=== PATIENT | female | born 1965 | race Caucasian/White ===

== ENCOUNTER 2019-02-21 06:13 | Emergency (ER) | payer BC ==
[~2019-02-21] VITALS: Ht 167.6 cm; Wt 72.6 kg
--- NOTE | 2019-02-21 06:29 | NUR ---
Patient ambulated with stable gait. Speech clear, speaks in complete sentences. No neuro deficits noted. A/Ox4. Patient came for c/o bilat flank pain x2 hrs along with traces of blood in the urine. Respiratory even and unlabored, no cough no sob. No cardiovascular distress noted, all pulses palpable. Denies any n/v/d, no other symptoms other than the hematuria reported. Patient in bed at lowest position, sr upx2, call light within reach. Fall precautions implemented per protocol. at bedside accompanying patient.
--- NOTE | 2019-02-21 06:31 | NUR ---
ERMD at bedside for eval.
--- NOTE | 2019-02-21 06:40 | NUR ---
Called Radiology to page US for patient scan.
[2019-02-21] MEDS ORDERED: ONDANSETRON 4 MG/2 ML VIAL ONE (06:42)
[2019-02-21] MEDS ORDERED: KETOROLAC TROMETHAMINE 30 MG INJ ONE (06:42)
[2019-02-21] MEDS ORDERED: ONDANSETRON 4 MG/2 ML VIAL IV ONE (06:45)
[2019-02-21] MEDS ORDERED: KETOROLAC TROMETHAMINE 15 MG INJ IVP ONE (06:45)
[2019-02-21] MEDS ORDERED: IV NORMAL SALINE 1000 ML BAG IV ONE (06:45)
[2019-02-21] MEDS ORDERED: RIZA10TA27 PO (06:50)
[2019-02-21] MEDS ORDERED: ESOM20CA PO (06:51)
[2019-02-21 06:53] LABS: BASOPHILS % (AUTO) 0.3 % (0.0-2.0); EOSINOPHILS % (AUTO) 0.4 % (0.0-7.0); HEMATOCRIT 39.5 % (31.2-41.9); HEMOGLOBIN 13.2 g/dL (10.9-14.3); LYMPHOCYTES # (AUTO) 1.7 K/uL (20.0-40.0); LYMPHOCYTES % (AUTO) 15.8 % (20.5-51.5); MEAN CORPUSCULAR HGB CONC 33 g/dL (32.3-35.6); MEAN CORPUSCULAR VOLUME 83.7 fL (75.5-95.3); MONOCYTES # (AUTO) 0.6 K/uL (2.0-10.0); MONOCYTES % (AUTO) 5.4 % (0.0-11.0); NEUTROPHILS # (AUTO) 8.4 K/uL (1.8-8.9); NEUTROPHILS % (AUTO) 78.1 % (38.5-71.5); PLATELET COUNT (AUTO) 212 K/uL (179-408); RED BLOOD CELL COUNT(AUTO) 4.72 MIL/uL (3.63-4.92); WHITE BLOOD COUNT (AUTO) 10.7 K/uL (3.8-11.8)
[2019-02-21 06:55] LABS: *BILIRUBIN,URIN NEGATIVE (NEGATIVE); *BLOOD, URINE 3+ (NEGATIVE); *CLARITY,URINE CLOUDY (CLEAR); *COLOR,URINE YELLOW (YELLOW); *KETONES,URINE NEGATIVE (NEGATIVE); *UROBILINOGEN,URINE 0.2 E.U./dl (NORMAL); LEUKOCYTE ESTERASE ,URINE 2+ (NEGATIVE); NITRITE, URINE NEGATIVE (NEGATIVE); PH,URINE 5.5 (5.0-8.0); UGLUCOSE NEGATIVE (NEGATIVE)
[2019-02-21 07:08] LABS: BILIRUBIN,DIRECT 0.2 mg/dL (0.0-0.2); BILIRUBIN,TOTAL 0.7 mg/dL (0.2-1.0); POTASSIUM 3.7 mmol/L (3.5-5.1); TOTAL PROTEIN, SERUM 6.8 g/dL (6.4-8.2)
[2019-02-21 07:23] LABS: BACTERIA,URINE FEW /HPF (NONE SEEN); SQUAMOUS EPITHELIAL CELL,UR FEW /HPF (NONE SEEN); WBC,URINE 80-100 /HPF (0-3)
--- NOTE | 2019-02-21 07:37 | NUR ---
Patient is awake and alert with no new complaints. I called US, they will be here to do ultrasound soon.
[2019-02-21] MEDS ORDERED: CEFTRIAXONE 1 G in IV DEXTROSE 5% 50 ML IV ONE (07:45)
[2019-02-21] MEDS ORDERED: CEFTRIAXONE /D5W 50ML IVPB **ER PYXIS IV ONE (07:56)
[2019-02-21] MEDS ORDERED: FENTANYL CITRATE 100 MCG/2 ML AMPUL ONE (07:56)
[2019-02-21] MEDS ORDERED: FENTANYL CITRATE 100 MCG/2 ML AMPUL IV ONE (08:00)
--- NOTE | 2019-02-21 08:40 | NUR ---
patient had stated she had pain again in flank area. Dr rodrigues was at bedside speaking to patient. Medication given as ordered. patient states pain had diminished.
--- NOTE | 2019-02-21 09:14 | NUR ---
IV removed. Catheter intact and site benign. Pressure and 4x4 gauze applied to site. No bleeding noted.
--- NOTE | 2019-02-21 09:14 | NUR ---
DC, RX AND FOLLOW UP INSTRUCTIONS GIVEN AND EXPLAINED TO PATIENT WHO STATES SHE UNDERSTANDS ALL INSTRUCTIONS.
--- NOTE | 2019-02-21 09:16 | NUR ---
PATIENT AND AWARE OF WARNINGS/PRECAUTIONS OF FENTANYL. TO DRIVE HOME.
== END 2019-02-21 09:19 | disposition home or self-care (01) ==
LOC: ER 06:18
DX: N39.0 Urinary tract infection, site not specified (principal); N20.0 Calculus of kidney; K21.9 Gastro-esophageal reflux disease without esophagitis; Z79.899 Other long term (current) drug therapy
CPT/HCPCS: 36415; 74176; 76770; 80048; 80076; 81000; 81001; 83690; 85025; 87086; 96365; 96375; 99284; J0696; J1885; J2405; J3010; A4663; J7030

== ENCOUNTER 2019-04-20 13:21 | Emergency (ER) | payer BC ==
[~2019-04-20 13:21] MED LIST: ESOM20CA PO; RIZA10TA27 PO
--- NOTE | 2019-04-20 13:44 | NUR ---
Patient left without being triaged/seen. Patient stated that she received a phone call from her primary doctor, and was told to go to his office.
== END 2019-04-20 13:47 | disposition left against medical advice (07) ==
LOC: ER 13:21
DX: Z53.21 Procedure and treatment not carried out due to patient leaving prior to being seen by health care provider (principal)
CPT/HCPCS: A4663

== ENCOUNTER 2021-03-22 11:41 | Emergency (ER) | payer BC ==
[~2021-03-22] VITALS: Ht 167.6 cm; Wt 72.6 kg
[2021-03-22] MEDS ORDERED: Pyridium PO (12:14)
--- NOTE | 2021-03-22 12:19 | NUR ---
Urine sent to lab. Portable U/S machine@bedside per MD order.
[2021-03-22] MEDS ORDERED: MORPHINE SULFATE 4 MG/1 ML DISP.SYRIN ONE (12:41)
[2021-03-22] MEDS ORDERED: ONDANSETRON 4 MG/2 ML VIAL ONE (12:41)
[2021-03-22 12:45] LABS: *COLOR,URINE Orange (YELLOW); *KETONES,URINE TRACE (NEGATIVE); LEUKOCYTE ESTERASE ,URINE 3+ (NEGATIVE); NITRITE, URINE POSITIVE (NEGATIVE)
[2021-03-22] MEDS ORDERED: ONDANSETRON 4 MG/2 ML VIAL IV ONE (12:45)
[2021-03-22] MEDS ORDERED: MORPHINE SULFATE 4 MG/1 ML DISP.SYRIN IV ONE (12:45)
[2021-03-22] MEDS ORDERED: KETOROLAC TROMETHAMINE 15 MG INJ IVP ONE (12:45)
[2021-03-22 12:47] LABS: *BILIRUBIN,URIN 1+ (NEGATIVE); *BLOOD, URINE TRACE (NEGATIVE); UGLUCOSE 1+ (NEGATIVE)
[2021-03-22 12:54] LABS: *CLARITY,URINE SLIGHTLY HAZY (CLEAR); BACTERIA,URINE FEW /HPF (NONE SEEN); SQUAMOUS EPITHELIAL CELL,UR FEW /HPF (NONE SEEN)
[2021-03-22 12:59] LABS: MEAN CORPUSCULAR HEMOGLOBIN 30.7 uug (24.7-32.8); MEAN CORPUSCULAR VOLUME 90.1 fL (75.5-95.3); PLATELET COUNT (AUTO) 235 K/uL (179-408)
[2021-03-22 13:02] LABS: CREATININE 1.1 mg/dL (0.6-1.3); POTASSIUM 3.4 mmol/L (3.5-5.1)
[2021-03-22] MEDS ORDERED: KETOROLAC TROMETHAMINE 15 MG INJ ONE (13:06)
[2021-03-22 13:08] LABS: BILIRUBIN,TOTAL 0.8 mg/dL (0.2-1.0); TOTAL PROTEIN, SERUM 6.6 g/dL (6.4-8.2)
[2021-03-22] MEDS ORDERED: IV NORMAL SALINE 500 ML BAG IV ONE (13:30)
[2021-03-22] MEDS ORDERED: CEFTRIAXONE 1 G in IV DEXTROSE 5% 50 ML IV ONE (13:30)
[2021-03-22] MEDS ORDERED: CIPR500T5 PO (16:24)
[2021-03-22] MEDS ORDERED: IBUP-1953 PO (16:24)
[2021-03-22] MEDS ORDERED: ONDANSETRON HCL 4 MG TABLET PO ONE (16:30)
--- NOTE | 2021-03-22 16:35 | NUR ---
removed IV intact, site benign, bandaged. Gave pt RX and d/c instructions, pt verbalized understanding.
[2021-03-22] MEDS ORDERED: ONDANSETRON ODT 4 MG TAB.RAPDIS ONE (16:38)
[2021-03-22] MEDS ORDERED: CEPH500T PO (21:45)
[2021-03-22] MEDS ORDERED: NITR-84 PO (21:45)
[2021-03-22] MEDS ORDERED: PHEN-705 PO (21:45)
[2021-03-22] MEDS ORDERED: HYDR-3980 PO (21:45)
== END 2021-03-22 17:54 | disposition home or self-care (01) ==
LOC: ER 11:41
DX: R11.0 Nausea (principal); N39.0 Urinary tract infection, site not specified; Z87.442 Personal history of urinary calculi; K21.9 Gastro-esophageal reflux disease without esophagitis
CPT/HCPCS: 36415; 74176; 80053; 81001; 85025; 87086; 96361; 96374; 96375; 99285; J1885; J2270; J2405; A4663; Q0162

== ENCOUNTER 2021-03-22 21:08 | Emergency (ER) | payer BC ==
[~2021-03-22] VITALS: Ht 167.6 cm; Wt 72.6 kg
[~2021-03-22 21:08] MED LIST changes: +CIPR500T5 PO; +IBUP-1953 PO; +Pyridium PO
--- NOTE | 2021-03-22 21:34 | NUR ---
Dr. Gr at bedside for MSE.
[2021-03-22] MEDS ORDERED: PHEN-705 PO (21:45)
[2021-03-22] MEDS ORDERED: ONDANSETRON 4 MG/2 ML VIAL IV ONE (21:45)
[2021-03-22] MEDS ORDERED: CEFTRIAXONE 1 G in IV DEXTROSE 5% 50 ML IV ONE (21:45)
[2021-03-22] MEDS ORDERED: NITR-84 PO (21:45)
[2021-03-22] MEDS ORDERED: HYDR-3980 PO (21:45)
[2021-03-22] MEDS ORDERED: PHENAZOPYRIDINE HCL 100 MG TABLET PO ONE (21:45)
[2021-03-22] MEDS ORDERED: CEPH500T PO (21:45)
[2021-03-22] MEDS ORDERED: HYDROMORPHONE 1 MG/1 ML DISP.SYRIN IV ONE (21:45)
[2021-03-22] MEDS ORDERED: PHENAZOPYRIDINE HCL 100 MG TABLET ONE (21:54)
[2021-03-22] MEDS ORDERED: HYDROMORPHONE 1 MG/1 ML DISP.SYRIN ONE (21:55)
[2021-03-22] MEDS ORDERED: CEFTRIAXONE /D5W 50ML IVPB **ER PYXIS IV ONE (21:55)
[2021-03-22] MEDS ORDERED: ONDANSETRON 4 MG/2 ML VIAL ONE (21:55)
--- NOTE | 2021-03-22 22:17 | NUR ---
Patient discharged to home in stable condition. Written and verbal after care instructions given. Patient verbalizes understanding of instructions. Stressed follow up or return to ER for worsening s/s. Patient out of ER with steady gait, no acute signs of distress, VSS, all belongings taken, IV site discontinued, instructed not to drive, to be driven home by via private vehicle.
[2021-03-22 22:18] VITALS: BP 140/89
== END 2021-03-22 22:18 | disposition home or self-care (01) ==
LOC: ER 21:15
DX: N30.90 Cystitis, unspecified without hematuria (principal); R10.2 Pelvic and perineal pain; K21.9 Gastro-esophageal reflux disease without esophagitis
CPT/HCPCS: 87086; 96374; 96375; 99284; J0696; J1170; J2405; A4663